=== PATIENT | female | born 1990 | race Caucasian/White ===

== ENCOUNTER 2020-05-09 10:20 | Inpatient (IN) | payer MEDICAID ==
[~2020-05-09] VITALS: Ht 167.6 cm; Wt 64.0 kg
[~2020-05-09 10:20] MED LIST: ALBU8HFA IH
[2020-05-09 11:29] LABS: BASOPHILS % (AUTO) 0.3 % (0.0-2.0); EOSINOPHILS % (AUTO) 0.3 % (1.0-6.0); HEMOGLOBIN 14.5 g/dL (12.0-16.0); LYMPHOCYTES # (AUTO) 1.5 K/uL (1.0-4.8); LYMPHOCYTES % (AUTO) 11.5 % (22.0-44.0); MEAN CORPUSCULAR HEMOGLOBIN 33.2 pg (26.0-34.0); MEAN CORPUSCULAR HGB CONC 33.6 G/dL (31.0-37.0); MEAN CORPUSCULAR VOLUME 99 fL (80-100); MONOCYTES % (AUTO) 7.4 % (2.0-9.0); NEUTROPHILS # (AUTO) 10.4 K/uL (1.8-7.7); NEUTROPHILS % (AUTO) 80.5 % (40.0-70.0); PLATELET COUNT (AUTO) 286 K/uL (150-450); RED BLOOD CELL COUNT(AUTO) 4.36 MIL/uL (4.00-5.20); RED CELL DISTRIBUTION WIDTH 12.9 % (11.5-14.5)
[2020-05-09 11:43] LABS: ANION GAP 9 mmol/L (8-16); CALCIUM, TOTAL 8.8 mg/dL (8.8-10.5); CARBON DIOXIDE 27 mmol/L (22-29); CHLORIDE 107 mmol/L (98-107); CREATININE 0.89 mg/dL (0.60-1.30); GLOMERULAR FILTR. RATE CALC > 60 mL/min (>60); GLUCOSE,RANDOM 96 mg/dL (70-110); POTASSIUM 3.6 mmol/L (3.5-5.1); SODIUM SERUM 143 mmol/L (136-145); UREA NITROGEN, BLOOD 15 mg/dL (7-18)
[2020-05-09 11:46] LABS: ALANINE AMINOTRANSFERASE 19 U/L (12-78); ALBUMIN 4.1 g/dL (3.4-5.0); ALKALINE PHOSPHATASE 59 U/L (46-116); ASPARTATE AMINOTRANSFERASE 17 U/L (15-37); BILIRUBIN,TOTAL 0.5 mg/dL (0.1-1.0); TOTAL PROTEIN, SERUM 7.7 g/dL (6.4-8.2)
[2020-05-09 11:46] LABS: AMPHET/METH SCREEN,URINE POSITIVE (NEGATIVE); BARBITURATE SCREEN, URINE NEGATIVE (NEGATIVE); BENZODIAZEPINES SCREEN,URINE NEGATIVE (NEGATIVE); CANNABINOID SCREEN,URINE POSITIVE (NEGATIVE); COCAINE SCREEN,URINE POSITIVE (NEGATIVE); METHADONE SCREEN, URINE NEGATIVE (NEGATIVE); OPIATE SCREEN,URINE NEGATIVE (NEGATIVE)
[2020-05-09 11:47] LABS: PHENCYCLIDINE SCREEN,URINE NEGATIVE (NEGATIVE)
[2020-05-09 12:56] LABS: HCG,QUANTITATIVE < 1 mIU/mL (0-6)
[2020-05-09 14:04] LABS: COVID AG,FIA SOURCE NASOPHARYNGEAL
[2020-05-09] MEDS ORDERED: HALOPERIDOL 5 MG TABLET PO PRN (15:30)
[2020-05-09] MEDS ORDERED: LORazepam 2 MG TABLET PO PRN (15:30)
[2020-05-09] MEDS ORDERED: ZOLPIDEM TARTRATE 10 MG TABLET PO PRN (15:30)
[2020-05-09 20:20] VITALS: BP 93/60
[2020-05-09] MEDS ORDERED: INFLUENZA VIRUS VACCINE QVS 2020-21 (6MO+)/PF 60 MCG/0.5 ML SYRINGE IM ONE (21:15)
[2020-05-09] MEDS ORDERED: ALBUTEROL SULFATE HFA 90 MCG/PUFF 8 GM INHALER IH PRN (22:00)
[2020-05-10 03:18] VITALS: BP 100/65
[2020-05-10] MEDS ORDERED: GuaiFENesin/D-METHORPHAN [SUGAR-FREE] 200-20MG/10 ML SYRUP UDCUP PO PRN (06:00)
[2020-05-10] MEDS ORDERED: ONDANSETRON HCL 4 MG TABLET PO PRN (06:00)
[2020-05-10] MEDS ORDERED: LOPERAMIDE HCL 2 MG CAPSULE PO PRN (06:00)
[2020-05-10] MEDS ORDERED: NICOTINE 14 MG/24 HOUR PATCH TD PRN (06:00)
[2020-05-10] MEDS ORDERED: MAGNESIUM HYDROXIDE SUSPENSION 30 ML UDCUP PO PRN (06:00)
[2020-05-10] MEDS ORDERED: CloNIDine HCL 0.1 MG TABLET PO PRN (06:00)
[2020-05-10] MEDS ORDERED: IBUPROFEN 400 MG TABLET PO PRN (06:00)
[2020-05-10] MEDS ORDERED: PETROLATUM,WHITE 28 GM JELLY TP PRN (06:00)
[2020-05-10] MEDS ORDERED: DOCUSATE SODIUM 100 MG CAPSULE PO PRN (06:00)
[2020-05-10] MEDS ORDERED: MAG HYDROX/AL HYDROX/SIMETH ES 30 ML SUSPENSION UDCUP PO PRN (06:00)
[2020-05-10] MEDS ORDERED: ACETAMINOPHEN 325 MG TABLET PO PRN (06:00)
[2020-05-10] MEDS: ALBUTEROL SULFATE HFA 90 MCG/PUFF 8 GM INHALER IH PRN (06:05)
[2020-05-10 08:18] VITALS: BP 105/66
[2020-05-10 16:01] VITALS: BP 138/75
[2020-05-10 16:04] VITALS: BP 113/70
[2020-05-11 01:09] VITALS: BP 109/76
[2020-05-11] MEDS: ALBUTEROL SULFATE HFA 90 MCG/PUFF 8 GM INHALER IH PRN (06:40)
[2020-05-11 08:09] VITALS: BP 108/65
== END 2020-05-11 13:20 | disposition home or self-care (01) | DRG 885 ==
LOC: EMS 10:23 → B3A 15:32
PROVIDERS: ADMIT Psychiatry & Neurology Psychiatry; ATTEND Psychiatry & Neurology Psychiatry
DX: F29 Unspecified psychosis not due to a substance or known physiological condition (principal); J45.909 Unspecified asthma, uncomplicated; D72.829 Elevated white blood cell count, unspecified; F25.9 Schizoaffective disorder, unspecified; Z03.818 Encounter for observation for suspected exposure to other biological agents ruled out
CPT/HCPCS: 87426; 90686; G0480; J3535

== ENCOUNTER 2021-04-27 19:04 | Emergency (ER) | payer MEDICAID ==
[~2021-04-27] VITALS: Ht 167.6 cm; Wt 65.0 kg
[2021-04-27 19:15] VITALS: BP 145/62
[2021-04-27 21:18] LABS: COVID AG,FIA SOURCE NASOPHARYNGEAL
[2021-04-27 22:02] LABS: INFLUENZA TYPE A NEGATIVE FOR TYPE A (NEGATIVE); INFLUENZA TYPE B NEGATIVE FOR TYPE B (NEGATIVE)
== END 2021-04-27 20:41 | disposition home or self-care (01) ==
LOC: EMS 19:09
DX: J02.9 Acute pharyngitis, unspecified (principal); J45.909 Unspecified asthma, uncomplicated; Z20.822 Contact with and (suspected) exposure to COVID-19
CPT/HCPCS: 87426; 87804; 99283; C9803; U0003

== ENCOUNTER 2021-05-02 14:51 | Emergency (ER) | payer MEDICAID ==
[~2021-05-02] VITALS: Ht 167.6 cm; Wt 75.0 kg
[2021-05-02 14:59] VITALS: BP 96/56
[2021-05-02 17:42] LABS: COVID AG,FIA SOURCE NASOPHARYNGEAL
== END 2021-05-02 19:15 | disposition home or self-care (01) ==
LOC: EMS 14:59
DX: U07.1 COVID-19 (principal); J45.909 Unspecified asthma, uncomplicated; Z88.8 Allergy status to other drugs, medicaments and biological substances
CPT/HCPCS: 87426; 99283; U0003

== ENCOUNTER 2022-10-04 22:10 | Emergency (ER) | payer MEDICAID, OTHER ==
[~2022-10-04] VITALS: Ht 167.6 cm; Wt 63.6 kg
[~2022-10-04 22:10] MED LIST changes: +ALBU18HF12 IH; -ALBU8HFA IH
[2022-10-04] MEDS ORDERED: HYDROCODONE/ACETAMINOPHEN 5-325 MG TABLET PO ONE (23:15)
[2022-10-04] MEDS ORDERED: BACITRACIN 0.9 GM PACKET OINTMENT TP ONE (23:30)
[2022-10-05 00:03] VITALS: BP 106/78
[2022-10-05] MEDS ORDERED: CYCL-448 PO (00:28)
[2022-10-05] MEDS ORDERED: MOXI3DRO27 OU (00:28)
== END 2022-10-05 00:41 | disposition home or self-care (01) ==
LOC: EMS 22:17
DX: H10.219 Acute toxic conjunctivitis, unspecified eye (principal); G89.29 Other chronic pain; J45.909 Unspecified asthma, uncomplicated
CPT/HCPCS: 72072; 72100; 99284

== ENCOUNTER 2022-10-06 20:19 | Emergency (ER) | payer OTHER ==
[~2022-10-06] VITALS: Ht 167.6 cm; Wt 61.4 kg
[~2022-10-06 20:19] MED LIST changes: +CYCL-448 PO; +MOXI3DRO27 OU
[2022-10-06 20:28] VITALS: BP 104/62
[2022-10-07] MEDS ORDERED: CYCL-448 PO (01:21)
== END 2022-10-07 02:00 | disposition home or self-care (01) ==
LOC: EMS 20:22
DX: M54.9 Dorsalgia, unspecified (principal); R20.0 Anesthesia of skin; J45.909 Unspecified asthma, uncomplicated; Z98.890 Other specified postprocedural states
CPT/HCPCS: 71045; 99283